=== PATIENT | female | born 1995 | race Two or more races ===

== ENCOUNTER 2017-10-14 03:55 | Emergency (ER) | payer OTHER ==
[~2017-10-14] VITALS: Ht 167.6 cm; Wt 73.5 kg
[~2017-10-14 03:55] MED LIST: CEFADROXIL500 MG PO; CIPRO XR 5500 MG/BOT PO; PEPCID40 MG PO; SEPTRA DS PO; URETRON D-S TAB1 TAB PO; ZOFRAN4 MG PO
== END 2017-10-14 10:01 | disposition home or self-care (01) ==
LOC: ER 03:55
DX: O23.41 Unspecified infection of urinary tract in pregnancy, first trimester (principal); Z34.01 Encounter for supervision of normal first pregnancy, first trimester

== ENCOUNTER 2018-01-05 06:32 | Inpatient (IN) | payer OTHER ==
[~2018-01-05] VITALS: Ht 167.6 cm; Wt 73.5 kg
[2018-01-10] MEDS ORDERED: CEFUROXIME500 MG PO (16:36)
== END 2018-01-10 16:53 | DRG 781 ==
LOC: ER 06:32 → OB/GYN 16:43
PROC: BT4JZZZ Ultrasonography of Kidneys and Bladder (ICD-10-PCS; principal; 2018-01-05)
PROC: BY4CZZZ Ultrasonography of Second Trimester, Single Fetus (ICD-10-PCS; 2018-01-05)
PROC: 4A1HXCZ Monitoring of Products of Conception, Cardiac Rate, External Approach (ICD-10-PCS; 2018-01-05)
DX: O23.02 Infections of kidney in pregnancy, second trimester (principal); B96.29 Other Escherichia coli [E. coli] as the cause of diseases classified elsewhere; O23.32 Infections of other parts of urinary tract in pregnancy, second trimester

== ENCOUNTER 2018-02-27 00:48 | Outpatient (CLI) | payer OTHER ==
[~2018-02-27 00:48] MED LIST changes: +CEFUROXIME500 MG PO
[2018-02-27] MEDS ORDERED: MAXFE CAPLET1 EACH PO (06:44)
[2018-02-27] MEDS ORDERED: KEFLEX500 MG PO (06:44)
[2018-02-27] MEDS ORDERED: MONISTAT 745 GM VAG (06:52)
== END 2018-02-27 08:18 | disposition home or self-care (01) ==
LOC: OBS/DEL 00:48
DX: O23.42 Unspecified infection of urinary tract in pregnancy, second trimester (principal); O26.892 Other specified pregnancy related conditions, second trimester; R10.2 Pelvic and perineal pain; Z34.82 Encounter for supervision of other normal pregnancy, second trimester

== ENCOUNTER 2018-03-19 10:35 | Inpatient (IN) | payer OTHER ==
[~2018-03-19] VITALS: Ht 167.6 cm; Wt 78.0 kg
[~2018-03-19 10:35] MED LIST changes: +KEFLEX500 MG PO; +MAXFE CAPLET1 EACH PO; +MONISTAT 745 GM VAG
[2018-03-21] MEDS ORDERED: CEFUROXIME500 MG PO (14:40)
[2018-03-21] MEDS ORDERED: KETO10TA2 PO (14:42)
== END 2018-03-21 15:00 | disposition home or self-care (01) | DRG 781 ==
LOC: OBS/DEL 10:35 → LDR 10:39 → OBS/DEL 10:39 → LDR 03-21 15:00
PROC: BT43ZZZ Ultrasonography of Bilateral Kidneys (ICD-10-PCS; principal; 2018-03-19)
PROC: 4A1HXCZ Monitoring of Products of Conception, Cardiac Rate, External Approach (ICD-10-PCS; 2018-03-19)
DX: O23.33 Infections of other parts of urinary tract in pregnancy, third trimester (principal); N13.39 Other hydronephrosis; O99.89 Other specified diseases and conditions complicating pregnancy, childbirth and the puerperium; R31.0 Gross hematuria

== ENCOUNTER 2018-05-07 14:30 | Inpatient (IN) | payer OTHER ==
[~2018-05-07] VITALS: Ht 167.6 cm; Wt 80.7 kg
[~2018-05-07 14:30] MED LIST changes: +KETO10TA2 PO
[2018-05-10] MEDS ORDERED: PRENATAL TABLE1 EAC1 PO (09:21)
[2018-05-13] MEDS ORDERED: PERCOCET 5-3251 EACH PO (07:46)
== END 2018-05-13 13:36 | disposition home or self-care (01) | DRG 766 ==
LOC: O/R 05-10 08:49 → LDR 05-10 12:00 → OB/GYN 05-10 14:30 → LDR 05-10 14:30 → OB/GYN 05-10 15:40
PROVIDERS: Specialist
PROC: 4A1HXCZ Monitoring of Products of Conception, Cardiac Rate, External Approach (ICD-10-PCS; 2018-05-10)
PROC: 10D00Z1 Extraction of Products of Conception, Low, Open Approach (ICD-10-PCS; principal; 2018-05-10 12:00)
DX: O34.211 Maternal care for low transverse scar from previous cesarean delivery (principal); O75.82 Onset (spontaneous) of labor after 37 completed weeks of gestation but before 39 completed weeks gestation, with delivery by (planned) cesarean section; Z3A.38 38 weeks gestation of pregnancy; Z37.0 Single live birth; Z22.330 Carrier of Group B streptococcus